=== PATIENT | female | born 1985 | race Caucasian/White ===

== ENCOUNTER 2016-12-28 18:40 | Emergency (ER) | payer OTHER ==
[2016-12-28] MEDS ORDERED: Acetaminophen 500 MG TAB ONE (19:19)
[2016-12-28] MEDS ORDERED: HYDROcodone/Acetaminophen 10/325 mg Tablet ONE (20:02)
[2016-12-28] MEDS ORDERED: Benzonatate 100 MG CAP ONE (20:02)
[2016-12-28] MEDS ORDERED: Oseltamivir 75 MG CAP ONE (20:02)
== END 2016-12-28 20:10 | disposition home or self-care (01) ==
LOC: MADERS 18:40
DX: J10.1 Influenza due to other identified influenza virus with other respiratory manifestations (principal); F17.210 Nicotine dependence, cigarettes, uncomplicated
CPT/HCPCS: 87081; 87430; 99283

== ENCOUNTER 2017-01-03 17:18 | Emergency (ER) | payer OTHER | END 2017-01-03 17:48 | disposition home or self-care (01) | LOC: MADERS 17:18 | DX: J20.9 Acute bronchitis, unspecified (principal); F17.210 Nicotine dependence, cigarettes, uncomplicated | CPT/HCPCS: 99283 ==

== ENCOUNTER 2018-03-11 13:00 | Emergency (ER) | payer OTHER ==
[2018-03-11] MEDS ORDERED: HYDROcodone/Acetaminophen 5/325 mg Tablet ONE (13:29)
[2018-03-11] MEDS ORDERED: Ibuprofen 800 MG TAB ONE (13:29)
== END 2018-03-11 14:21 | disposition home or self-care (01) ==
LOC: MADERS 13:00
DX: R10.33 Periumbilical pain (principal); F17.210 Nicotine dependence, cigarettes, uncomplicated
CPT/HCPCS: 99283

== ENCOUNTER 2019-07-03 18:00 | Emergency (ER) | payer OTHER ==
[2019-07-03] MEDS ORDERED: Sodium Chloride 0.9% 1,000 ML ONE (18:35)
[2019-07-03] MEDS ORDERED: Meclizine HCl 25 MG TAB ONE (18:35)
[2019-07-03] MEDS ORDERED: Acetaminophen 500 MG TAB ONE (18:35)
[2019-07-03 18:48] LABS: #Basophils 0.1 thou/uL (0.0-0.2); #Eosinphils 0.1 thou/uL (0.0-0.7); #Lymphocytes 1.9 thou/uL (1.20-3.40); #Monocytes 0.5 thou/uL (0.11-0.59); #Neutrophils 5.9 thou/uL (1.40-6.50); %Basophils 0.8 % (0.0-1.0); %Eosinophils 1.2 % (0.0-10.0); %Lymphocytes 22.2 % (21.0-51.0); %Monocytes 5.8 % (0.0-10.0); %Neutrophils 70.1 % (42.0-75.0); Hemoglobin 12.8 g/dL (12.0-16.0); Mean Corpuscular HGB CONC 33.6 g/dL (32.0-36.0); Mean Corpuscular Volume 86.2 fL (78.0-98.0); Mean Platelet Volume 7.9 fL (7.4-10.4); Platelet Count 173 thou/uL (130-400); RBC Distribution Width 11.3 % (11.5-14.5); Red Blood Cell (RBC) Count 4.41 mill/uL (4.20-5.40); White Blood Cell (WBC) Count 8.3 thou/uL (4.8-10.8)
[2019-07-03 18:56] LABS: BHCG - Serum Negative (NEGATIVE); Pregs Control Background? CLEAR/WHITE (CLR/WHITE); Pregs Control Bar Appear? YES (CONTROL BAR)
[2019-07-03 19:06] LABS: ALT (SGPT) 24 U/L (8-55); AST (SGOT) 28 U/L (5-34); Albumin 4.5 g/dL (3.5-5.0); Alkaline Phosphatase 48 U/L (40-110); Anion Gap 15 mmol/L (10-20); BUN (Urea Nitrogen) 13 mg/dL (7.0-18.7); Bilirubin, Total 0.3 mg/dL (0.2-1.2); CK (CPK) 100 U/L (29-168); Calc. Creatinine Clearance 0 mL/min (70-130); Calcium 9.3 mg/dL (7.8-10.44); Carbon Dioxide 23 mmol/L (22-29); Chloride 106 mmol/L (98-107); Estimated GFR-MDRD 84; Globulin 2.8 g/dL (2.4-3.5); Glucose 98 mg/dL (70-105); Potassium 3.6 mmol/L (3.5-5.1); Protein, Total 7.3 g/dL (6.0-8.3); Sodium 140 mmol/L (136-145)
== END 2019-07-03 19:47 | disposition home or self-care (01) ==
LOC: MADERS 18:00
DX: R42 Dizziness and giddiness (principal); F17.210 Nicotine dependence, cigarettes, uncomplicated
CPT/HCPCS: 80053; 82550; 84703; 85025; 96360; J7050; J8597

== ENCOUNTER 2021-02-05 09:45 | Outpatient (CLI) | payer OTHER ==
[2021-02-05 10:44] LABS: #Basophils 0.1 thou/uL (0.0-0.2); #Eosinphils 0.1 thou/uL (0.0-0.7); #Lymphocytes 1.5 thou/uL (1.20-3.40); #Monocytes 0.5 thou/uL (0.11-0.59); #Neutrophils 4.7 thou/uL (1.40-6.50); %Basophils 1.3 % (0.0-1.0); %Eosinophils 1.1 % (0.0-10.0); %Lymphocytes 22.1 % (21.0-51.0); %Monocytes 6.9 % (0.0-10.0); %Neutrophils 68.6 % (42.0-75.0); Hemoglobin 14.3 g/dL (12.0-16.0); Mean Corpuscular HGB CONC 31.6 g/dL (32.0-36.0); Mean Corpuscular Hemoglobin 29.4 pg (27.0-31.0); Mean Platelet Volume 10.3 fL (7.4-10.4); Platelet Count 201 thou/uL (130-400); RBC Distribution Width 11.4 % (11.5-14.5); Red Blood Cell (RBC) Count 4.85 mill/uL (4.20-5.40); White Blood Cell (WBC) Count 6.8 thou/uL (4.8-10.8)
[2021-02-05 11:01] LABS: ALT (SGPT) 20 U/L (8-55); AST (SGOT) 20 U/L (5-34); Albumin 4.7 g/dL (3.5-5.0); Alkaline Phosphatase 50 U/L (40-110); Anion Gap 14 mmol/L (10-20); BUN (Urea Nitrogen) 17 mg/dL (7.0-18.7); Bilirubin, Total 0.8 mg/dL (0.2-1.2); CRP (Inflammatory) Less than 0.50 mg/dL (= or < 0.5); Calc. Creatinine Clearance 0 mL/min (70-130); Calcium 9.3 mg/dL (7.8-10.44); Carbon Dioxide 26 mmol/L (22-29); Cardiac Risk 2.1 (Less than 4.5); Chloride 105 mmol/L (98-107); Cholesterol 170 mg/dl (< 200 Desired); Globulin 2.8 g/dL (2.4-3.5); Glucose 102 mg/dL (70-105); HDL Cholesterol 81 mg/dL (>60 Neg Risk); LDL Cholesterol, Calculated 78 mg/dL; Potassium 4.3 mmol/L (3.5-5.1); Protein, Total 7.5 g/dL (6.0-8.3); Sodium 141 mmol/L (136-145); Triglycerides 53 mg/dL (Less than 150)
[2021-02-05 11:13] LABS: Thyroid Stimulating Hormone 0.7462 uIU/mL (0.35-4.94)
[2021-02-05 17:35] LABS: Free T4 (Free Thyroxine) 1.02 ng/dL (0.70-1.48)
== END 2021-02-05 09:46 | disposition home or self-care (01) ==
LOC: MADLAB 09:45
PROVIDERS: ATTEND Family Medicine
DX: R63.4 Abnormal weight loss (principal); Z72.0 Tobacco use
CPT/HCPCS: 36415; 71046; 80053; 80061; 84439; 84443; 84481; 85025; 85652; 86140

== ENCOUNTER 2022-08-08 13:08 | Emergency (ER) | payer OTHER ==
[2022-08-08] MEDS ORDERED: Ibuprofen 400 MG TAB ONE (14:34)
== END 2022-08-08 14:34 | disposition home or self-care (01) ==
LOC: MADERS 13:08
DX: S63.91XA Sprain of unspecified part of right wrist and hand, initial encounter (principal); W31.9XXA Contact with unspecified machinery, initial encounter; F17.210 Nicotine dependence, cigarettes, uncomplicated
CPT/HCPCS: 29125